=== PATIENT | female | born 1990 | race Hispanic/Latino ===

== ENCOUNTER 2017-07-21 07:36 | Day surgery (SDC) | payer MEDICAID ==
[2017-07-21 09:52] VITALS: BMI 21.2
[2017-07-21] MEDS ORDERED: Propofol 10 mg/ml Inj (20 ML) ONE (12:43)
[2017-07-21] MEDS ORDERED: Midazolam 2 MG/2 ML VIAL ONE (12:43)
[2017-07-21] MEDS ORDERED: Sodium Chloride 0.9% 500 ML IV ONE ×2 (12:50→14:45)
[2017-07-21] MEDS ORDERED: Dexamethasone 4 mg/1 ml ONE (13:03)
[2017-07-21] MEDS ORDERED: Strong Iodine Topical Sol. 5%-10% TOP ONE (13:13)
[2017-07-21] MEDS ORDERED: Lidocaine/Epi 1% 1:100000 20 ML IJ ONE ×2 (13:22)
[2017-07-21] MEDS ORDERED: Ferric Subsulfate Sol(60 mL) TP ONE (13:35)
[2017-07-21] MEDS ORDERED: Oxycodone/Acetaminophen 5/325 mg Tab PO PRN (13:51)
[2017-07-21 14:19] VITALS: O2SAT 100
[2017-07-21 15:33] VITALS: BP 123/81; PULSE 67; RESP 19; TEMP 98.2
--- NOTE | 2017-07-28 07:53 | OP ---
PROCEDURE DATE: 07/21/2017 PREOPERATIVE DIAGNOSIS: Cervical dysplasia, cervical intraepithelial neoplasia II. POSTOPERATIVE DIAGNOSIS: Cervical dysplasia, cervical intraepithelial neoplasia II. PROCEDURE: Loop electrical excision procedure. SURGEON: Brandon Baird MD TYPE OF ANESTHESIA: General endotracheal and a local injection of dilute solution of 1% lidocaine with epinephrine. SPECIMENS: LEEP procedure of the cervix, which was sent to pathology. COMPLICATIONS: None. ESTIMATED BLOOD LOSS: Less than 5 mL. INDICATIONS: The patient is a 26-year-old female who presented to the office for routine annual. 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 Her endocervical curettage was negative. She presents for definitive diagnosis and management for LEEP procedure. An informed consent was obtained. Risks, benefits, and indications were discussed with the patient, she agreed with planned procedure. DESCRIPTION OF PROCEDURE: The patient was taken to the operating room where she underwent general anesthesia without complications. She was then placed in the dorsal lithotomy position. She was prepped and draped in the routine sterile fashion. A coated speculum was placed into the vagina and a suction curette was attached. The solution of was then applied. The cervix was inspected, there were some cath lab technologist non-staining areas noted along the endocervical canal as well as along the cervix more or less around 12 o'clock and at 6 o'clock. The patient was then injected with a dilute solution of 1% local lidocaine with epinephrine submucosally along the cervix at 12 o'clock, 6 o'clock, 9 o'clock, and 3 o'clock. This was followed by performance of the LEEP procedure one was performed. Hemostasis was obtained with the ball electrode. This was followed by application of Monsel solution and silver nitrate closer to the endocervical canal. Of note, the electrosurgical generator was set to 40 miranda on blend 1. Excellent hemostasis was obtained. The patient was awaken from her anesthesia and returned to the PACU in satisfactory condition. Brandon Baird MD
== END 2017-07-21 15:50 | disposition home or self-care (01) ==
LOC: H.OPSURG 07:36
PROVIDERS: ATTEND Obstetrics & Gynecology
DX: D06.7 Carcinoma in situ of other parts of cervix (principal)
CPT/HCPCS: 36415; 57522; 84703; 86850; 86900; 88305; 88307; J1100; J1885; J2001; J2250; J2704; J2765; J3010; J7030; J7040

== ENCOUNTER 2018-05-28 12:09 | Emergency (ER) | payer MEDICAID ==
[2018-05-28 12:10] VITALS: BMI 21.2
[2018-05-28 12:38] VITALS: BP 119/85; PULSE 89; RESP 16; TEMP 98.1; O2SAT 100
[2018-05-28] MEDS ORDERED: Albuterol-Ipratrop 3 mg / 0.5 (3 ml) UD INH STA (12:45)
[2018-05-28] MEDS ORDERED: Albuterol-Ipratrop 3 mg / 0.5 (3 ml) UD ONE (13:04)
--- NOTE | 2018-05-28 13:14 | ED PDOC ---
HPI: CCC, URI, Sore Throat Time Seen by Provider: 05/28/18 12:40 Chief Complaint (Nursing): Cough, Cold, Congestion Chief Complaint (Provider): Cough, Chest Tightness History Per: Patient History/Exam Limitations: no limitations Onset/Duration Of Symptoms: Other (over one month) Current Symptoms Are (Timing): Still Present Additional Complaint(s): 27 year old female presents to the ED for evaluation of a productive cough for over a month associated with chest tightness. Patient notes that initially she had a fever as well, but it has since resolved. Otherwise, denies recent travel, sick contacts, hemoptysis, chest pain, weakness, and leg pain. Of note, patient reports smoking 1/2 - 1 pack of cigarettes daily for the past 13 years. PMD: Arielle Souza Past Medical History Reviewed: Historical Data, Nursing Documentation, Vital Signs Vital Signs: Last Vital Signs Temp 98.1 F 05/28/18 12:36 Pulse 89 05/28/18 12:36 Resp 16 05/28/18 12:36 BP 119/85 05/28/18 12:36 Pulse Ox 100 05/28/18 12:36 - Medical History PMH: Anxiety Denies: Chronic Kidney Disease - Surgical History Surgical History: No Surg Hx - Family History Family History: States: No Known Family Hx - Social History Current smoker - smoking cessation education provided: Yes (1/2 - 1 pack per day) Alcohol: None Drugs: Denies - Home Medications Home Medications: Ambulatory Orders Medication Instructions Recorded Albuterol HFA [Ventolin HFA 90 2 puff IH [id number] PRN #120 puff 05/28/18 mcg/actuation (8 g)] Azithromycin [Zithromax] 250 mg PO DAILY #6 tab 05/28/18 predniSONE [Prednisone] 40 mg PO DAILY #8 tab 05/28/18 - Allergies Allergies/Adverse Reactions: Allergies Allergy/AdvReac Type Severity Reaction Status Date / Time No Known Allergies Allergy Verified 05/28/18 12:34 Review of Systems ROS Statement: Except As Marked, All Systems Reviewed And Found Negative Constitutional: Negative for: Fever, Weakness Cardiovascular: Positive for: Other (chest tightness). Negative for: Chest Pain Respiratory: Positive for: Cough. Negative for: Hemoptysis Musculoskeletal: Negative for: Leg Pain Physical Exam - Reviewed Nursing Documentation Reviewed: Yes Vital Signs Reviewed: Yes - Physical Exam Appears: Positive for: No Acute Distress (speaking full sentences) Eye Exam: Positive for: Normal appearance, EOMI, PERRL ENT: Positive for: Normal ENT Inspection. Negative for: Pharyngeal Erythema, Tonsillar Exudate, Tonsillar Swelling Cardiovascular/Chest: Positive for: Regular Rate, Rhythm Respiratory: Positive for: Wheezing (bilateral expiratory). Negative for: Accessory Muscle Use, Respiratory Distress Neurologic/Psych: Positive for: Alert, Oriented (x3) - ECG O2 Sat by Pulse Oximetry: 100 (RA) Pulse Ox Interpretation: Normal - Radiology X-Ray: Interpreted by Me (CXR) X-Ray Interpretation: No Acute Disease - Progress Re-evaluation Time: 13:50 (Lungs clear b/l. Pt. advised to stop smoking. Results given. Advised to f/u with [facility] but is to return to ED immediately if symptoms worsen.) Condition: Re-examined, Improved Medical Decision Making Medical Decision Making: Time: 1244 Initial Impression: cough, r/o pneumonia Initial Plan: --U-preg --CXR --Duoneb 6ml INH --Prednisone 40mg PO CXR FINDINGS: LINES AND TUBES: None. LUNG AND PLEURA: The lungs are well inflated and clear. No pleural effusion or pneumothorax. HEART AND MEDIASTINUM: The heart is not enlarged. No aortic atherosclerotic calcifications present. The hilar and mediastinal contours are within normal limits. SKELETAL STRUCTURES: The bony structures are within normal limits for the patient's age. VISUALIZED UPPER ABDOMEN: Normal. OTHER FINDINGS: None. IMPRESSION: No active pulmonary disease. Scribe Attestation: Documented by Berta Adam, acting as a scribe for Neo Del Real PA-C. Provider Scribe Attestation: All medical record entries made by the Scribe were at my direction and personally dictated by me. I have reviewed the chart and agree that the record accurately reflects my personal performance of the history, physical exam, medical decision making, and the department course for this patient. I have also personally directed, reviewed, and agree with the discharge instructions and disposition. Disposition - Clinical Impression Clinical Impression: Asthmatic bronchitis - Patient ED Disposition Is Patient to be Admitted: No - Disposition Referrals: [facility] [Outside] Disposition: Routine/Home Disposition Time: 13:54 Condition: IMPROVED Additional Instructions: FOLLOW UP WITH [facility] FOR FURTHER EVALUATION RETURN TO ED IMMEDIATELY IF SYMPTOMS WORSEN DAVID LOCKETT, thank you for letting us take care of you today. Your provider was Dk Gayle MD and you were treated for TROUBLE BREATHING. The emergency medical care you received today was directed at your acute symptoms. If you were prescribed any medication, please fill it and take as directed. It may take several days for your symptoms to resolve. Return to the Emergency Department if your symptoms worsen, do not improve, or if you have any other problems. Please contact your doctor or call one of the physicians/clinics you have been referred to that are listed on the Patient Visit Information form that is included in your discharge packet. Bring any paperwork you were given at discharge with you along with any medications you are taking to your follow up visit. Our treatment cannot replace ongoing medical care by a primary care provider outside of the emergency department. Thank you for allowing the [facility] team to be part of your care today. If you had an X-Ray or CT scan: A Radiologist will review the ED reading if any change in treatment is needed we will contact you. If you had a blood, urine, or wound culture: It will take several days for the results, if any change in treatment is needed we will contact you. If you had an STI test: It will take 48 hours for the results. Please call after 1 week if you have not heard back. Prescriptions: Albuterol HFA [Ventolin HFA 90 mcg/actuation (8 g)] 2 puff IH [id number] PRN #120 puff PRN Reason: Cough Azithromycin [Zithromax] 250 mg PO DAILY #6 tab predniSONE [Prednisone] 40 mg PO DAILY #8 tab Instructions: Smoking: Not Just Harmful to Your Lungs and Heart, Asthma, Adult (DC), Inhalers, Quitting Smoking Forms: [employer] (I[place]ic)
--- NOTE | 2018-05-28 13:54 | RAD ---
Date of service: 05/28/2018 HISTORY: Cough COMPARISON: No prior. TECHNIQUE: Chest PA and lateral FINDINGS: LINES AND TUBES: None. LUNG AND PLEURA: The lungs are well inflated and clear. No pleural effusion or pneumothorax. HEART AND MEDIASTINUM: The heart is not enlarged. No aortic atherosclerotic calcifications present. The hilar and mediastinal contours are within normal limits. SKELETAL STRUCTURES: The bony structures are within normal limits for the patient's age. VISUALIZED UPPER ABDOMEN: Normal. OTHER FINDINGS: None. IMPRESSION: No active pulmonary disease.
== END 2018-05-28 14:48 | disposition home or self-care (01) ==
LOC: H.ER 12:09
DX: J45.909 Unspecified asthma, uncomplicated (principal); F17.210 Nicotine dependence, cigarettes, uncomplicated; F41.9 Anxiety disorder, unspecified